=== PATIENT | female | born 1975 | race Caucasian/White ===

== ENCOUNTER 2016-10-17 16:14 | Emergency (ER) | payer OTHER ==
[2016-10-17 17:05] VITALS: BP 127/69
[2016-10-17] MEDS ORDERED: Cephalexin CAP* 500 MG PO ONE (17:47)
--- NOTE | 2016-11-16 18:54 | UC ---
Jonathan Augustin Billy, scribed for Nohemy Haddad DO on 10/17/16 at 1730 . Knee Pain HPI - HPI Summary HPI Summary: Patient is a 40 year-old female coming to [facility] presenting with right lower extremity pain for three days. The pain is located at the upper region of her talley, not within the joint. She describes "tightness," as if there is "water in the area." Pain severity 5/10. Pain is worse with direct pressure, but not worse with walking. She states that it appears red and feels warm, and has been progressively worsening since onset. She denies any other complaints at this time such as fevers or chills. 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 - History of Current Complaint Chief Complaint: UCLowerExtremity Stated Complaint: KNEE COMPLAINT Time Seen by Provider: 10/17/16 17:22 Hx Obtained From: Patient Hx Last Menstrual Period: August 2016 Onset/Duration: Gradual Onset, Lasting Days, Still Present Severity Initially: Moderate Severity Currently: Moderate Location Of Injury: Upper region of the right talley Pain Intensity: 5 Pain Scale Used: 0-10 Numeric Character: Dull Aggravating Factor(s): Movement Alleviating Factor(s): Nothing Associated Signs And Symptoms: Positive: Redness Able to Bear Weight: Yes - Allergies/Home Medications Allergies/Adverse Reactions: Allergies Allergy/AdvReac Type Severity Reaction Status Date / Time Azithromycin [From Z-David] Allergy Hallucinati Verified 10/17/16 17:05 ons watermelon Allergy Rash Uncoded 10/17/16 17:07 PMH/Surg Hx/FS Hx/Imm Hx - Additional Past Medical History Additional PMH: Pituitary tumor. Endocrine History Of: Denies: Diabetes, Thyroid Disease Cardiovascular History Of: Denies: Cardiac Disorders, Hypertension, Pacemaker/ICD Respiratory History Of: Denies: COPD, Asthma GI/ History Of: Denies: Ulcer, Renal Disease - Surgical History Surgical History: Yes Surgery Procedure, Year, and Place: LASIK left eye - Family History Known Family History: Positive: Hypertension Negative: Cardiac Disease, Diabetes - Social History Occupation: Employed Full-time - [employer] Work[employer] Hel[employer] Alcohol Use: Rare Substance Use Type: None Smoking Status (MU): Former Smoker Length of Time of Smoking/Using Tobacco: ocassional When Did the Patient Quit Smoking/Using Tobacco: 10 years - Immunization History Most Recent Influenza Vaccination: denies Review of Systems Constitutional: Negative Skin: Other - Redness to the RLE Eyes: Negative ENT: Negative Respiratory: Negative Cardiovascular: Negative Gastrointestinal: Negative Genitourinary: Negative Motor: Negative Neurovascular: Negative Musculoskeletal: Other: - RLE pain Neurological: Negative Psychological: Negative All Other Systems Reviewed And Are Negative: Yes Physical Exam Triage Information Reviewed: Yes Appearance: Well-Appearing, No Pain Distress, Well-Nourished Vital Signs: Initial Vital Signs Temp 97.7 F 10/17/16 16:56 Pulse 76 10/17/16 16:56 Resp 16 10/17/16 16:56 BP 127/69 10/17/16 16:56 Pulse Ox 100 10/17/16 16:56 Vital Signs Reviewed: Yes Eyes: Positive: Conjunctiva Clear. Negative: Discharge ENT: Positive: Hearing grossly normal. Negative: Muffled/hoarse voice Neck: Positive: Supple, Nontender Respiratory: Positive: Lungs clear, Normal breath sounds, No respiratory distress, No accessory muscle use Cardiovascular: Positive: RRR, No Murmur Musculoskeletal Exam: Normal Musculoskeletal: Positive: Strength Intact Neurological: Positive: Alert, Muscle Tone Normal Psychological: Positive: Age Appropriate Behavior Skin Exam: Other - Are of approximately 5cm x 4cm inferior to the right tibial tuberosity of erythema, callor, swelling, but no fluctuance. Knee Pain Course/Dx - Differential Dx/Diagnosis Differential Diagnosis/HQI/PQRI: Burn, Cellulitis, Contusion, Infection Provider Diagnoses: cellulitis Discharge - Discharge Plan Condition: Stable Disposition: HOME Prescriptions: Cephalexin CAP* [Keflex CAP*] 500 mg PO BID #20 cap Patient Education Materials: Cellulitis (ED) Referrals: Mildred Larry MD [Medical Doctor] - 3 Days (FOLLOW UP IN 2 DAYS IF NOT IMPROVING OR IF SYMPTOMS ARE NOT COMPLETELY RESOLVED BY THE TIME YOU COMPLETE THE COURSE OF ANTIBIOTICS.) Additional Instructions: CEPHALEXIN: The antibiotic you've been prescribed is a member of the cephalosporin class. This type of antibiotic covers a wide variety of infections, including those of the skin, lungs, and urinary tract. It's useful for staph infections. This antibiotic is slightly similar to the penicillin family. In rare cases , a person who is allergic to penicillin will also be allergic to this medication. If you have had a severe allergic reaction to penicillin, and have not taken this antibiotic since that time, notify your doctor. Antibiotics which cover many germs ("broad spectrum" antibiotics) are more likely to cause diarrhea or "yeast" infections. Women prone to vaginal yeast problems may suffer an attack after taking this antibiotic. In infants, oral thrush (white spots "stuck" on the cheek) or yeast diaper rash may result. See your doctor if these problems occur. Call at once if you develop itching, hives , shortness of breath, or lightheadedness. ANY TIME YOU TAKE AN ANTIBIOTIC, IT IS IMPORTANT TO REPLENISH THE BODY'S BALANCE OF "GOOD" BACTERIA BY EATING HIGH QUALITY CULTURED FOOD SUCH YOGURT, SAURKRAUT OR MABLE CHI AND/OR TAKING A PROBIOTIC SUPPLEMENT. PLEASE RETURN TO URGENT CARE IF REDNESS AND TENDERNESS DOES NOT IMPROVE IN 2 DAYS, CERTAINLY IF THE REDNESS WORSENS WITH TIME. IF THE REDNESS EXPANDS BEYOND THE BORDERS OF THE PEN, OR IF YOU DEVELOP NEW SYMPTOMS SUCH FEVERS, CHILLS, RED STREAKS, OR TENDER/SWOLLEN JOINTS, PLEASE RETURN TO URGENT CARE EVEN SOONER OR VISIT THE EMERGENCY ROOM FOR FURTHER WORKUP AND EVALUATION. The documentation as recorded by the Jonathan chi Billy accurately reflects the service I personally performed and the decisions made by , Nohemy Haddad DO.
== END 2016-10-17 18:05 | disposition home or self-care (01) ==
LOC: UCEAST 16:14
DX: L03.115 Cellulitis of right lower limb (principal); Z88.1 Allergy status to other antibiotic agents; Z87.891 Personal history of nicotine dependence
CPT/HCPCS: 99212; A9270-GY; G0463

== ENCOUNTER 2017-05-02 17:34 | Emergency (ER) | payer OTHER ==
--- NOTE | 2017-05-02 17:57 | UC ---
Neck Pain HPI - HPI Summary HPI Summary: 41 y/o female presents to the urgent care c/o LF side neck pain,radiating to his LF shoulder and arm for the past 8 days. Pt states pain now is 7/10. She reports she works in [employer]. Pt denies any injury of Hx of neck pain. Pt went to the [address] [place] [address] Urgent care when symptoms started, they Rx her Flexeril Po and Prednisone PO, she took 2 tabs of Flexeril POand stopped b/c it made her feel anxious. She has not taking the Prednisone. She read on the internet that Pt with athlete's foot should not take Prednisone. She has done Acupuncture 2X for the past 2 days and went to the Quiropractor yesterday to allaviate symptoms. She thought she was better yesterday at [facility] pain return. Pt denies numbness and tingling other the upper extremities, fever, SOB, chest pain, N/V/ D , abdominal pain. - History of Current Complaint Chief Complaint: UCUpperExtremity Stated Complaint: NECK,SHOULDER,ARM PAIN Time Seen by Provider: 05/02/17 17:43 Hx Obtained From: Patient Hx Last Menstrual Period: August 2016 ?: No Onset/Duration Of Injury/Symptoms: Weeks - 1 week Timing: Constant Onset/Duration: Gradual Onset, Lasting Weeks - 1 week Severity: Moderate Pain Intensity: 7 Pain Scale Used: 0-10 Numeric Location: Radiates To: - LF shoulder and LF arm Character: Spasmotic Aggravating Factors: Movement, Other: - sitting Alleviating Factors: Message Associated Signs & Symptoms: Positive: Negative. Negative: Swelling, Redness, Fever, Nuchal Rigity, Headache, Paresthesia - Risk Factors Meningitis Risk Factors: Negative - Allergies/Home Medications Allergies/Adverse Reactions: Allergies Allergy/AdvReac Type Severity Reaction Status Date / Time Azithromycin [From Z-David] Allergy Hallucinati Verified 10/17/16 17:05 ons watermelon Allergy Rash Uncoded 10/17/16 17:07 PMH/Surg Hx/FS Hx/Imm Hx Previously Healthy: Yes Other Endocrine History: Pituitary Benign tumor - Surgical History Surgical History: Yes Surgery Procedure, Year, and Place: LASIK left eye - Family History Known Family History: Positive: None, Hypertension Negative: Cardiac Disease, Diabetes - Social History Occupation: Employed Full-time Lives: With Family Alcohol Use: Rare Substance Use Type: None Smoking Status (MU): Former Smoker Length of Time of Smoking/Using Tobacco: ocassional When Did the Patient Quit Smoking/Using Tobacco: 10 years - Immunization History Most Recent Influenza Vaccination: denies Review Of Systems Constitutional: Positive: Negative Skin: Positive: Negative Eyes: Positive: Negative ENT: Positive: Negative Respiratory: Positive: Negative Cardiovascular: Positive: Negative Gastrointestinal: Positive: Negative Genitourinary: Positive: Negative Musculoskeletal: Positive: Other: - LF side it neck pain radiating to the left shoulder and left arm Neurological: Positive: Negative Psychological: Positive: Negative All Other Systems Reviewed And Are Negative: Yes Physical Exam Triage Information Reviewed: Yes Appearance: Well-Appearing, No Pain Distress, Well-Nourished, Obese Vital Signs: Initial Vital Signs Temp 98.3 F 05/02/17 17:36 Pulse 64 05/02/17 17:36 Resp 18 05/02/17 17:36 BP 145/94 05/02/17 17:36 Pulse Ox 100 05/02/17 17:36 Vital Signs Reviewed: Yes Eye Exam: Normal Eyes: Positive: Conjunctiva Clear - PERRLA, EOMI ENT Exam: Normal ENT: Positive: Normal ENT inspection, Hearing grossly normal, Pharynx normal, TMs normal Neck: Positive: Supple, No Lymphadenopathy, Tenderness @ - tenderness to palpation at the base ot left side of neck, no swelling or erythema observed. Decrease ROM of nect due to pain, specially on felxion and extension. Positive pulses and sensation over B/L upper arms with brisk capillary refill.. Negative : Nuchal Rigidity Respiratory Exam: Normal Respiratory: Positive: Chest non-tender, Lungs clear, Normal breath sounds Cardiovascular Exam: Normal Cardiovascular: Positive: RRR, No Murmur, Pulses Normal Abdominal Exam: Normal Abdomen Description: Positive: Nontender, No Organomegaly, Soft. Negative: CVA Tenderness (R), CVA Tenderness (L) Bowel Sounds: Positive: Present Musculoskeletal Exam: Normal Musculoskeletal: Positive: Strength Intact, ROM Intact, No Edema Neurological Exam: Normal Psychological Exam: Normal Skin Exam: Normal Neck Pain Course/Dx - Course Course Of Treatment: 41 y/o female presents to the urgent care c/o LF side neck pain,radiating to his LF shoulder and arm for the past 8 days. Pt states pain now is 7/10. She reports she works in [employer]. Pt denies any injury of Hx of neck pain. Pt went to the [address] [place] [address] Urgent care when symptoms started, they Rx her Flexeril Po and Prednisone PO, she took 2 tabs of Flexeril PO and stopped b/ c it made her feel anxious. She has not taking the Prednisone. She read on the internet that Pt with athlete's foot should not take Prednisone. She has done Acupuncture 2X for the past 2 days and went to the Quiropractor yesterday to allaviate symptoms. She thought she was better yesterday at [facility] pain return. Pt denies numbness and tingling other the upper extremities, fever, SOB, chest pain, N/V/D , abdominal pain. HX obtained. Cervical X-ray ordered: Impression: nonspecific straightening of the normal cervical lordosis w/o any radiological apparent acute abnormality. 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 Pt RX Robaxin PO and naproxen PO to alleviate symptoms of spasm and pain. First dose dispense home since pharmacy is close now. Pt given PT referral for evaluation and treatment. Pt advised if not improvement of symptoms to f/u with her PCP for further images. Pt agreed with D/C instructions and left the clinic ambulating, A&OX3 - Differential Dx/Diagnosis Differential Dx/HQI/PQRI: Arthritis, Cervical Fracture, Sprain, Strain, Torticollis Provider Diagnoses: 1- Neck pain and neck spasm Discharge - Discharge Plan Condition: Stable Disposition: HOME Prescriptions: Methocarbamol [Robaxin-750 MG TAB] 750 mg PO TID #18 tab Naproxen TAB* [Naprosyn 250 mg TAB*] 500 mg PO Q8H PRN #30 tab PRN Reason: Pain Patient Education Materials: Spasmodic Torticollis (ED) Referrals: No Primary Care Phys,NOPCP [Primary Care Provider] - [facility] [place]] Additional Instructions: 2- PLease take Naproxen as instructed after meals to alleviate pain. Take Robaxin PO for muscle spasm. Please do not drive 3- F/u with your PT referral for further evaluation ant treatment.. 4- If symptoms do not improve or worsen please return to the urgent care or f/u with your PCP for further evaluation and treatment
--- NOTE | 2017-05-02 19:28 | RAD ---
INDICATION: Neck pain COMPARISON: None. TECHNIQUE: 5 views of the cervical spine were obtained. FINDINGS: There is nonspecific straightening and a small degree of reversal of the normal cervical lordosis. The vertebral bodies and facet joints are otherwise appropriately aligned. No prevertebral soft tissue swelling or fracture is seen. Disc spaces appear maintained. IMPRESSION: Nonspecific straightening of the normal cervical lordosis without radiographically apparent acute abnormality. If the patient's symptoms persist, follow-up imaging is recommended.
[2017-05-02] MEDS ORDERED: Methocarbamol TAB* 500 MG PO ONE ×2 (19:45→19:52)
[2017-05-02] MEDS ORDERED: Naproxen TAB* 250 MG PO ONE ×2 (19:46→19:53)
[2017-05-02 19:50] VITALS: BP 137/73
== END 2017-05-02 20:08 | disposition home or self-care (01) ==
LOC: UCEAST 17:34
DX: M54.2 Cervicalgia (principal); M62.830 Muscle spasm of back; D35.2 Benign neoplasm of pituitary gland; E66.9 Obesity, unspecified; Z88.1 Allergy status to other antibiotic agents; Z87.891 Personal history of nicotine dependence
CPT/HCPCS: 72050; 99213; A9270-GY; G0463

== ENCOUNTER 2017-05-05 17:31 | Emergency (ER) | payer OTHER ==
[2017-05-05 17:43] VITALS: BP 132/77
== END 2017-05-05 18:09 | disposition left against medical advice (07) ==
LOC: ED 17:31
DX: R20.2 Paresthesia of skin (principal); Z53.21 Procedure and treatment not carried out due to patient leaving prior to being seen by health care provider
CPT/HCPCS: 99281

== ENCOUNTER 2017-05-12 13:10 | Emergency (ER) | payer OTHER ==
[2017-05-12 13:30] VITALS: BP 133/87
--- NOTE | 2017-05-12 14:40 | UC ---
Neck Pain HPI - HPI Summary HPI Summary: Patient presents to the clinic with a past medical history of a pituitary tumor which she states is benign. She states that tow weeks ago she started to have right sided neck pain, for which she has been seen at the chiropractor, acupuncture, [facility] had xrays, and the ER last Thursday. She has taken prednisone, and is scheduled for PT next week. She was also RX morphine but she was afraid to take it. She also reports that following the above she started to have a burning pain of the right side of her neck that radiated down the right arm, that felt like a blow torch, with no rash, or weakness noted. She now complains of a numbness on the right side of her head and face. She states that she has had this symptom in the past when she overuses the right arm e.g knitting, using the clipper outside in the garden. But, she states the sensation is not different in that she at times does not feel she need to urinate, and she also feel numb across the lower abdomen. She states "I am just having very strange numbness in my body". She also notes she has not slept in three days. She says her chiropractor thought it could be lymes so he sent her here for a test. - History of Current Complaint Chief Complaint: UCGeneralIllness Stated Complaint: NUMB AND TINGLY FEELING, AND TICK BITE Time Seen by Provider: 05/12/17 14:15 Hx Obtained From: Patient Hx Last Menstrual Period: 6 months ago ?: No Onset/Duration: Lasting Hours Associated Signs & Symptoms: Positive: Paresthesia - Risk Factors Meningitis Risk Factors: Negative - Allergies/Home Medications Allergies/Adverse Reactions: Allergies Allergy/AdvReac Type Severity Reaction Status Date / Time Azithromycin [From Z-David] Allergy Hallucinati Verified 05/12/17 13:23 ons watermelon Allergy Rash Uncoded 05/12/17 13:23 PMH/Surg Hx/FS Hx/Imm Hx Other Endocrine History: pituitary tumor - Surgical History Surgical History: Yes Surgery Procedure, Year, and Place: LASIK left eye - Family History Known Family History: Positive: None, Hypertension Negative: Cardiac Disease, Diabetes - Social History Alcohol Use: Rare Substance Use Type: None Smoking Status (MU): Former Smoker Length of Time of Smoking/Using Tobacco: ocassional When Did the Patient Quit Smoking/Using Tobacco: 10 years - Immunization History Most Recent Influenza Vaccination: denies Review Of Systems Constitutional: Positive: Negative Skin: Positive: Negative Eyes: Positive: Negative ENT: Positive: Negative Respiratory: Positive: Negative Gastrointestinal: Positive: Negative Neurological: Positive: Paresthesia All Other Systems Reviewed And Are Negative: Yes Physical Exam Triage Information Reviewed: Yes Appearance: Other: - anxious crying Vital Signs: Initial Vital Signs Temp 98 F 05/12/17 13:24 Pulse 79 05/12/17 13:24 Resp 16 05/12/17 13:24 BP 133/87 05/12/17 13:24 Pulse Ox 100 05/12/17 13:24 Vital Signs Reviewed: Yes Eye Exam: Normal ENT Exam: Normal Neck exam: Normal Respiratory Exam: Normal Cardiovascular Exam: Normal Abdominal Exam: Normal Musculoskeletal Exam: Normal Neurological: Positive: Other: - subjective;numbness on right side of head,face and lower abdomen. Psychological: Positive: Other: - anxious, crying Neck Pain Course/Dx - Course Course Of Treatment: Patient was advised to go to the ER for further evaluation , declined ambulance transport. Lymes titer drawn and pending. Discharge with stable vs, and otherwise normal neuro exam with exception of subjective symtpoms of numbess of right side of head, face and lower abdomen. - Differential Dx/Diagnosis Differential Dx/HQI/PQRI: Other - paresthesia Provider Diagnoses: paresthesia Discharge - Discharge Plan Condition: Stable Disposition: [facility] Patient Education Materials: Paresthesia (ED), Acute Neck Pain (ED) Referrals: No Primary Care Phys,NOPCP [Primary Care Provider] - Additional Instructions: Patient will drive self to the er for further evaluation immediately after she leave here.
[2017-05-14 18:54] LABS: Lyme Disease IgG Ab WB Negative (Negative)
== END 2017-05-12 14:44 | disposition short-term general hospital (02) ==
LOC: UCEAST 13:10
DX: R20.2 Paresthesia of skin (principal); D35.2 Benign neoplasm of pituitary gland; Z88.1 Allergy status to other antibiotic agents; Z87.891 Personal history of nicotine dependence
CPT/HCPCS: 86617; 99211; G0463

== ENCOUNTER 2017-05-12 15:09 | Emergency (ER) | payer OTHER ==
[2017-05-12 16:41] LABS: Hematocrit 39 % (35-47); Hemoglobin 13.7 g/dl (12.0-16.0); Mean Corpuscular HGB Conc 35 g/dl (31-36); Mean Corpuscular Hemoglobin 31 pg (27-31); Mean Corpuscular Volume 89 fL (80-97); Mean Platelet Volume 7 um3 (7.4-10.4); Red Cell Distribution Width 13 % (10.5-15); White Blood Count 7.1 10^3/ul (3.5-10.8)
[2017-05-12 17:12] LABS: Albumin 4.4 g/dL (3.2-5.2); BUN/Creatinine Ratio 14.1 (8-20); Calcium 9.1 mg/dL (8.6-10.3); EGFR African American 131.5 (>60); EGFR Non-African American 102.3 (>60); Globulin 2.7 g/dL (2-4); Potassium 3.8 mmol/L (3.5-5.0); Total Bilirubin 0.7 mg/dL (0.2-1.0); Total Protein 7.1 g/dL (6.4-8.9)
[2017-05-12 17:16] LABS: Urine Bacteria Absent (Absent)
[2017-05-12 17:21] LABS: Urine Bilirubin Negative (Negative); Urine Glucose Negative (Negative); Urine Nitrite Negative (Negative)
[2017-05-12] MEDS ORDERED: Lidocaine PATCH 5%* 1 PATCH TRANSDERM ONE (17:36)
[2017-05-12 19:14] VITALS: BP 132/76
[2017-05-12] MEDS ORDERED: Lidocaine Patch REMOVE* 1 NOTE MISC SCH (21:00)
--- NOTE | 2017-05-13 15:26 | ED ---
Yehuda Augustin Alfonso, scribed for Da Greenwood MD on 05/12/17 at 1715 . Complex/Multi-Sys Presentation - HPI Summary HPI Summary: This patient is a 41 year old F presenting to [facility] with a chief complaint of body pains since a few weeks ago. She reports the pains are at her right-sided face, scalp, neck, back, and left arm. The CC is described as aching, burning, tingling, and numbness. She states it is all my nerves are on fire. The patient rates the pain 5/10 in severity. Symptoms aggravated by touch and movement. Symptoms alleviated by rest (lying flat on back). Patient reports insomnia. Patient denies CP, SOB, dizziness, and lightheadedness. 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 She denies recent travels. - History Of Current Complaint Chief Complaint: EDGeneral Time Seen by Provider: 05/12/17 16:07 Hx Obtained From: Patient Onset/Duration: Sudden Onset, Lasting Weeks, Still Present Timing: Constant Severity Currently: Moderate Severity Initially: Moderate Aggravating Factor(s): touch and movement Alleviating Factor(s): rest (lying flat on back). Associated Signs And Symptoms: Positive: Other - insomnia. Patient denies CP, SOB, dizziness, and lightheadedness. - Allergies/Home Medications Allergies/Adverse Reactions: Allergies Allergy/AdvReac Type Severity Reaction Status Date / Time Azithromycin [From Z-David] Allergy Hallucinati Verified 05/12/17 15:18 ons watermelon Allergy Rash Uncoded 05/12/17 15:18 PMH/Surg Hx/FS Hx/Imm Hx Endocrine/Hematology History: Denies: Hx Diabetes, Hx Thyroid Disease Cardiovascular History: Denies: Hx Hypertension, Hx Pacemaker/ICD Respiratory History: Denies: Hx Asthma, Hx Chronic Obstructive Pulmonary Disease (COPD) GI History: Denies: Hx Ulcer History: Denies: Hx Renal Disease Sensory History: Denies: Hx Hearing Aid Psychiatric History: Denies: Hx Panic Disorder - Surgical History Surgery Procedure, Year, and Place: LAS left eye Infectious Disease History: Denies: Hx Clostridium Difficile, Hx Hepatitis, Hx Human Immunodeficiency Virus (HIV), Hx of Known/Suspected MRSA, Hx Shingles, Hx Tuberculosis, Hx Known/ Suspected VRE, Hx Known/Suspected VRSA, History Other Infectious Disease, Traveled Outside the [place] in Last 30 Days - Family History Known Family History: Positive: Hypertension Negative: Cardiac Disease, Diabetes - Social History Alcohol Use: Rare Substance Use Type: Reports: None Smoking Status (MU): Former Smoker Length of Time of Smoking/Using Tobacco: ocassional Review of Systems Negative: Fever, Chills Negative: Erythema Negative: Sore Throat Negative: Chest Pain Negative: Shortness Of Breath Negative: Abdominal Pain, Vomiting, Nausea Negative: dysuria, hematuria Positive: Other - body pains at right-sided face, scalp, neck, back, and left arm. Negative: Myalgia, Edema Negative: Rash Neurological: Other - insomnia; negative dizziness, lightheadedness All Other Systems Reviewed And Are Negative: Yes Physical Exam Triage Information Reviewed: Yes Vital Signs On Initial Exam: Initial Vitals Temp Pulse Resp BP Pulse Ox 98.1 F 84 16 130/90 99 05/12/17 15:15 05/12/17 15:15 05/12/17 15:15 05/12/17 15:15 05/12/17 15:15 Vital Signs Reviewed: Yes Appearance: Positive: Well-Appearing, No Pain Distress Skin: Positive: Warm, Dry Head/Face: Positive: Normal Head/Face Inspection Eyes: Positive: Conjunctiva Clear ENT: Positive: Normal ENT inspection Neck: Positive: Other: - Musculoskeletal ROM normal neck. (-) JVD, (-) Stridor, (-) Tracheal deviation, (-) Cervical adenopathy Respiratory/Lung Sounds: Positive: Other - Effort normal. (-) Respiratory distress, (-) Wheezes, (-) Rales Cardiovascular: Positive: RRR, Other - Heart sounds normal; Intact distal pulses ; The pedal pulses are 2+ and symmetric. Radial pulses are 2+ and symmetric. (- ) Murmur Abdomen Description: Positive: Nontender, Soft, Other: - Negative rebound. Negative: Distended, Guarding Musculoskeletal: Negative: Edema Left, Edema Right Neurological: Positive: Alert, Oriented to Person Place, Time Psychiatric: Positive: Affect/Mood Appropriate - Hudson Coma Scale Coma Scale Total: 15 Diagnostics - Vital Signs Vital Signs Temp Pulse Resp BP Pulse Ox 05/12/17 15:15 98.1 F 84 16 130/90 99 - Laboratory Lab Results: Lab Results 05/12/17 05/12/17 Range/Units 16:32 16:32 WBC 7.1 (3.5-10.8) 10^3/ul RBC 4.40 (4.0-5.4) 10^6/ul Hgb 13.7 (12.0-16.0) g/dl Hct 39 (35-47) % MCV 89 (80-97) fL MCH 31 (27-31) pg MCHC 35 (31-36) g/dl RDW 13 (10.5-15) % Plt Count 216 (150-450) 10^3/ul MPV 7 L (7.4-10.4) um3 Sodium 125 L (133-145) mmol/L Potassium 3.8 (3.5-5.0) mmol/L Chloride 93 L (101-111) mmol/L Carbon Dioxide 25 (22-32) mmol/L Anion Gap 7 (2-11) mmol/L BUN 9 (6-24) mg/dL Creatinine 0.64 (0.51-0.95) mg/dL Est GFR ( Amer) 131.5 (>60) Est GFR (Non-Af Amer) 102.3 (>60) BUN/Creatinine Ratio 14.1 (8-20) Glucose 98 (70-100) mg/dL Calcium 9.1 (8.6-10.3) mg/dL Total Bilirubin 0.70 (0.2-1.0) mg/dL AST 15 (13-39) U/L ALT 8 (7-52) U/L Alkaline Phosphatase 33 L (34-104) U/L Total Protein 7.1 (6.4-8.9) g/dL Albumin 4.4 (3.2-5.2) g/dL Globulin 2.7 (2-4) g/dL Albumin/Globulin Ratio 1.6 (1-3) Result Diagrams: 05/12/17 16:32 05/12/17 16:32 Lab Statement: Any lab studies that have been ordered have been reviewed, and results considered in the medical decision making process. - EKG 1738 Cardiac Rate: NL - BPM 68 EKG Rhythm: Sinus Rhythm Ectopy: None EKG Interpretation: No STEMI Re-Evaluation - Re-Evaluation First Eval Re-Evaluation Time: 17:35 Comment: Pt confided in the physician that she has been drinking an excessive amount of water recently. Complex Multi-Symp Course/Dx Assessment/Plan: This patient is a 41 year old F presenting to [facility] with a chief complaint of body pains since a few weeks ago. She reports the pains are at her right-sided face, scalp, neck, back, and left arm. The CC is described as aching, burning, tingling, and numbness. She states it is all my nerves are on fire. The patient rates the pain 5/10 in severity. Symptoms aggravated by touch and movement. Symptoms alleviated by rest (lying flat on back). Patient reports insomnia. Patient denies CP, SOB, dizziness, and lightheadedness. 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 She denies recent travels. An EKG reveals NSR. Patient will be discharged with follow up from neurosurgery, orthopedics, and PCP. The patient is agreeable with this plan. - Diagnoses Provider Diagnoses: Polydipsia, Cervical radiculopathy, Hyponatremia - Physician Notifications Discussed Care Of Patient With: Fartun Ventura Time Discussed With Above Provider: 17:32 Instructed by Provider To: Other - Consulted Dr. Ventura (hospitalist) who will see the pt in the ED. Discharge - Discharge Plan Condition: Stable Disposition: HOME Patient Education Materials: Cervical Radiculopathy (ED), Hyponatremia (ED) Referrals: Jarek Del Cid MD [Medical Doctor] - 3 Days Art Serna MD [Medical Doctor] - 3 Days [facility] REFERRAL [Outside] - 3 Days Additional Instructions: RETURN TO THE EMERGENCY DEPARTMENT FOR CHANGING OR WORSENING SYMPTOMS. The documentation as recorded by the Yehuda chi Alfonso accurately reflects the service I personally performed and the decisions made by me, Da Greenwood MD.
== END 2017-05-12 19:13 | disposition home or self-care (01) ==
LOC: ED 15:09
DX: R63.1 Polydipsia (principal); M54.12 Radiculopathy, cervical region; E87.1 Hypo-osmolality and hyponatremia; G47.00 Insomnia, unspecified; Z87.891 Personal history of nicotine dependence
CPT/HCPCS: 36415; 80053; 81003; 81015; 84484; 85027; 87086; 93005; 99282; A9270-GY

== ENCOUNTER 2019-02-24 15:50 | Emergency (ER) | payer OTHER ==
[2019-02-24 16:06] VITALS: BP 147/87
--- NOTE | 2019-02-24 22:55 | UC ---
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 STATES SHE PULLS THEM OFF HER ALL THE TIME. ABOUT ONE WEEK AGO FOUND IN ENGORGED TICK ON THE BACK OF HER RIGHT KNEE. STARTING YESTERDAY STARTED FEELING OVERALL MALAISE AND FATIGUE WITH JOINT PAIN IN HER KNEES, ELBOWS AND HIPS. HAS SUBJECTIVE FEVER AND MILD HEADACHE. NO RASH. - History of Current Complaint Chief Complaint: UCGeneralIllness Stated Complaint: TICK Time Seen by Provider: 02/24/19 16:26 Hx Obtained From: Patient Hx Last Menstrual Period: 6 week Onset/Duration: Gradual Onset, Lasting Days, Still Present Timing: Constant Onset Severity: Moderate Current Severity: Moderate Pain Intensity: 6 Associated Signs & Symptoms: Positive: Fever - SUBJECTIVE, Headache - Allergy/Home Medications Allergies/Adverse Reactions: Allergies Allergy/AdvReac Type Severity Reaction Status Date / Time azithromycin Allergy Hallucinati Verified 02/24/19 16:59 ons Home Medications: Home Medications Ibuprofen TAB* [Advil TAB*] 600 mg PO TID 02/24/19 [History Confirmed 02/24/19] PMH/Surg Hx/FS Hx/Imm Hx Previously Healthy: Yes - Surgical History Surgical History: Yes Surgery Procedure, Year, and Place: LASIK left eye - Family History Known Family History: Positive: Hypertension Negative: Cardiac Disease, Diabetes - Social History Alcohol Use: Rare Substance Use Type: None Smoking Status (MU): Former Smoker Length of Time of Smoking/Using Tobacco: ocassional When Did the Patient Quit Smoking/Using Tobacco: 10 years - Immunization History Most Recent Influenza Vaccination: denies Review of Systems All Other Systems Reviewed And Are Negative: Yes Constitutional: Positive: Fever - SUBJECTIVE, Fatigue Skin: Positive: Negative Eyes: Positive: Negative Respiratory: Positive: Negative Cardiovascular: Positive: Negative Gastrointestinal: Positive: Negative Musculoskeletal: Positive: Arthralgia Neurological: Positive: Headache Physical Exam Triage Information Reviewed: Yes Appearance: Well-Appearing, No Pain Distress, Well-Nourished Vital Signs: Initial Vital Signs Temp 99.2 F 02/24/19 16:00 Pulse 72 02/24/19 16:00 Resp 17 02/24/19 16:00 BP 147/87 02/24/19 16:00 Pulse Ox 99 02/24/19 16:00 Vital Signs Reviewed: Yes Eyes: Positive: Conjunctiva Clear ENT: Positive: Hearing grossly normal, Pharynx normal, TMs normal Neck: Positive: Supple, Nontender, No Lymphadenopathy Respiratory Exam: Normal Cardiovascular Exam: Normal Abdomen Description: Positive: Soft Musculoskeletal: Positive: No Edema Neurological: Positive: Alert Psychological: Positive: Age Appropriate Behavior Skin: Negative: Rashes Course/Dx - Course Course Of Treatment: GIVEN PATIENT'S CLINICAL PRESENTATION, HIGH RISK PROFESSION AND KNOWN ENGORGED TICK ABOUT A WEEK AGO WOULD CONSIDER EMPIRIC TREATMENT FOR LYME DISEASE WITH DOXYCYCLINE, HOWEVER PATIENT WOULD PREFER BLOOD TESTING PRIOR TO INITIATING TREATMENT. WILL DRAW CBC AND LYME SEROLOGY TODAY AND CALL PATIENT WITH ANY ABNORMAL RESULTS. ADVISED HYDRATION AND OTC MEDICATIONS NEEDED FOR DISCOMFORT. SHOULD SHE DEVELOP A TARGET RASH OR ANY OTHER CONCERNING SYMPTOMS SHE WILL SEEK REEVALUATION. - Diagnoses Provider Diagnosis: Fatigue Discharge - Sign-Out/Discharge Documenting (check all that apply): Patient Departure All imaging exams completed and their final reports reviewed: No Studies - Discharge Plan Condition: Stable Disposition: HOME Patient Education Materials: Lyme Disease (ED), Tick Bite (ED) Referrals: Hector Solitario MD [Primary Care Provider] - If Needed Additional Instructions: GIVEN YOUR HIGH RISK PROFESSION AND KNOWN HISTORY OF MULTIPLE TICK BITES WILL FURTHER EVALUATE YOUR SYMPTOMS WITH LYME SEROLOGY AND BLOOD COUNT. YOU HAVE DECLINED EMPIRIC TREATMENT FOR LYME DISEASE IN FAVOR OF AWAITING RESULTS OF TESTING WHICH I THINK IS REASONABLE. SHOULD YOU DEVELOP A TARGET RASH, FEVER OR WORSENING HEADACHE, JOINT PAINS/BODY ACHES WOULD SEEK REEVALUATION. IF SYMPTOMS IMPROVE OR STAY THE SAME AND YOUR INITIAL LYME SCREEN IS POSITIVE I RECOMMEND AWAITING CONFIRMATORY RESULTS PRIOR TO INITIATING ANTIBIOTIC THERAPY. WE WILL CALL YOU WITH ANY ABNORMAL LAB RESULTS. ANTIBIOTIC TREATMENT FOLLOWING A TICK BITE IS NOT RECOMMENDED A MEANS TO PREVENT ANAPLASMOSIS, BABESIOSIS, EHRLICHIOSIS, OR KEVIN M[place] SPOTTED FEVER. THERE IS NO EVIDENCE THIS PRACTICE IS EFFECTIVE, AND IT MAY SIMPLY DELAY ONSET OF DISEASE. INSTEAD, PERSONS WHO EXPERIENCE A TICK BITE SHOULD BE ALERT FOR SYMPTOMS SUGGESTIVE OF TICKBORNE ILLNESS AND CONSULT A PHYSICIAN IF FEVER, RASH, HEADACHE OR OTHER SYMPTOMS OF CONCERN DEVELOP. - Billing Disposition and Condition Condition: STABLE Disposition: Home
[2019-02-25 11:35] LABS: ABS Lymphocytes 0.4 10^3/ul (1.0-4.8); ABS Monocytes 0.3 10^3/ul (0-0.8); ABS Neutrophils 2.3 10^3/ul (1.5-7.7); Eosinophil % 0.4 %; Hematocrit 40 % (35-47); Hemoglobin 13.8 g/dL (12.0-16.0); Lymphocyte % 12.3 %; Mean Corpuscular HGB Conc 34 g/dL (31-36); Mean Corpuscular Hemoglobin 31 pg (27-31); Mean Corpuscular Volume 90 fL (80-97); Mean Platelet Volume 7.7 fL (7.4-10.4); Platelet Count 140 10^3/uL (150-450); Red Blood Count 4.47 10^6 /uL (3.70-4.87); Red Cell Distribution Width 14 % (10-15); White Blood Count 2.9 10^3/uL (3.5-10.8)
== END 2019-02-24 16:56 | disposition home or self-care (01) ==
LOC: UCEAST 15:50
DX: R53.83 Other fatigue (principal); Z87.891 Personal history of nicotine dependence
CPT/HCPCS: 36415; 85025; 86618; 99211; G0463

== ENCOUNTER 2019-07-10 07:12 | Emergency (ER) | payer OTHER ==
[2019-07-10 07:28] VITALS: BP 155/85
[2019-07-10] MEDS ORDERED: Ciprofloxacin 0.3% OPTH.SOL* BTL ONE (07:44)
--- NOTE | 2019-07-10 08:09 | UC ---
Ear Complaint HPI - HPI Summary HPI Summary: A FEW DAYS AGO PATIENT WAS CLEANING HER EAR WITH A Q-TIP WHEN SHE HAD A SUDDEN PAIN. SINCE THEN THE PAIN HAS WORSENED AND HER HEARING IS MUTED. NO URI SYMPTOMS. - History of Current Complaint Chief Complaint: UCEar Stated Complaint: EAR COMPLAINT Time Seen by Provider: 07/10/19 07:33 Hx Obtained From: Patient Hx Last Menstrual Period: 6 week Onset/Duration: Sudden Onset, Lasting Days, Still Present Severity Initially: Moderate Severity Currently: Moderate Pain Intensity: 5 Pain Scale Used: 0-10 Numeric Aggravating Factors: Nothing Alleviating Factors: Nothing Associated Signs/Symptoms: Positive: Hearing Loss. Negative: Discharge, URI Symptoms - Allergies/Home Medications Allergies/Adverse Reactions: Allergies Allergy/AdvReac Type Severity Reaction Status Date / Time azithromycin Allergy Hallucinati Verified 02/24/19 16:59 ons PMH/Surg Hx/FS Hx/Imm Hx Previously Healthy: Yes - Surgical History Surgical History: Yes Surgery Procedure, Year, and Place: LASIK left eye - Family History Known Family History: Positive: Hypertension Negative: Cardiac Disease, Diabetes - Social History Alcohol Use: Rare Substance Use Type: None Smoking Status (MU): Former Smoker Length of Time of Smoking/Using Tobacco: ocassional When Did the Patient Quit Smoking/Using Tobacco: 10 years - Immunization History Most Recent Influenza Vaccination: denies Review of Systems All Other Systems Reviewed And Are Negative: Yes Constitutional: Positive: Negative ENT: Positive: Ear Ache Respiratory: Positive: Negative Cardiovascular: Positive: Negative Gastrointestinal: Positive: Negative Physical Exam Triage Information Reviewed: Yes Appearance: Well-Appearing, No Pain Distress, Well-Nourished Vital Signs: Initial Vital Signs Temp 97.7 F 07/10/19 07:20 Pulse 66 07/10/19 07:20 Resp 16 07/10/19 07:20 BP 155/85 07/10/19 07:20 Pulse Ox 99 07/10/19 07:20 Vital Signs Reviewed: Yes Eyes: Positive: Conjunctiva Clear ENT: Positive: Hearing grossly normal, Pharynx normal, Other - LEFT EAC AND TM NORMAL. RIGHT EAC SWOLLEN CLOSED Neck: Positive: Supple Respiratory: Positive: No respiratory distress, No accessory muscle use Cardiovascular: Positive: Pulses Normal Abdomen Description: Positive: Soft Musculoskeletal: Positive: No Edema Neurological: Positive: Alert Psychological: Positive: Age Appropriate Behavior Skin: Negative: Rashes Ear Complaint Course/Dx - Course Course Of Treatment: EAR WICK INSERTED INTO RIGHT EAC BY . 4 DROPS OF CIPROFLOXACIN INSTILLED. PRESCRIPTION SENT TO PHARMACY FOR CIPRODEX OTIC. PATIENT WILL USE THIS TWICE DAILY FOR THE NEXT WEEK AND FOLLOW UP WITH ENT IF HER SYMPTOMS DO NOT IMPROVE EXPECTED. - Differential Dx/Diagnosis Provider Diagnosis: Right otitis externa Discharge ED - Sign-Out/Discharge Documenting (check all that apply): Patient Departure All imaging exams completed and their final reports reviewed: No Studies - Discharge Plan Condition: Stable Disposition: HOME Prescriptions: Ciproflox/Dexameth OTIC.SUSP* [Ciprodex Otic*] 4 drop RIGHT EAR BID #1 bottle Patient Education Materials: Otitis Externa (ED) Referrals: Hector Solitario MD [Primary Care Provider] - If Needed Additional Instructions: YOU HAVE AN EXTERNAL OTITIS LIKELY CAUSED BY TRAUMA TO YOUR EAR CANAL FROM THE Q -TIP. USE THE EARDROPS TWICE DAILY FOR A WEEK. IF YOU DO NOT NOTICE IMPROVEMENT AFTER FEW DAYS FOLLOW-UP WITH ENT FOR FURTHER EVALUATION. THE WICK SHOULD FALL OUT OF YOUR EAR THE SWELLING DECREASES. OTC IBUPROFEN NEEDED FOR DISCOMFORT. IN THE FUTURE, IF YOU MUST USE A QTIP - DO NOT INSERT IT ANY FURTHER THAN THE DEPTH OF THE [place] SWAB. BE GENTLE. [facility] [place] [address] [facility] [phone] - Billing Disposition and Condition Condition: STABLE Disposition: Home
== END 2019-07-10 08:10 | disposition home or self-care (01) ==
LOC: UCEAST 07:12
DX: H60.91 Unspecified otitis externa, right ear (principal); Z88.1 Allergy status to other antibiotic agents; Z87.891 Personal history of nicotine dependence
CPT/HCPCS: 99202; A9270-GY; G0463